=== PATIENT | female | born 1970 | race Caucasian/White ===

== ENCOUNTER → 2020-08-30 | Day surgery (SDC) | payer MEDICARE ==
[~2020-08-30] MED LIST: ALBUTEROL INH; BRINTELLIX20 MG PO; CLONAZEPAM2 MG PO; CYMBALTA60 MG PO; DILANTIN100 MG PO; DULERA 100 MCG8.8 GM INH; FLONASE 0.05% N16 GM; GABAPENTIN800 MG PO; HYDROCHLOROTHIA25 MG PO; KEPPRA1000 MG PO; KLONOPIN TAB 00.5 MG PO; LAMICTAL100 MG PO; LAMOTRIGINE100 MG PO; LAMOTRIGINE150 MG PO; LEVOXYL50 MCG PO; LIPITOR TAB 2020 MG PO; LOTENSIN40 MG PO; MS CONTIN15 MG PO; NORFLEX 100 MG100 MG PO; PHENYTOIN SODI100 MG PO; PREDNISONE 50 M50 MG PO; PROVENTIL HFA6.7 GM INH; SEROQUEL XR400 MG PO; SEROQUEL300 MG PO; SYNTHROID50 MCG PO; VISTARIL50 MG PO; Voltaren Gel 1 % TOP; ZANAFLEX4 MG PO
== END | disposition home or self-care (01) ==
LOC: OR 08:22
DX: K20.90 Esophagitis, unspecified without bleeding (principal); K31.9 Disease of stomach and duodenum, unspecified; J39.2 Other diseases of pharynx; G47.33 Obstructive sleep apnea (adult) (pediatric); G40.909 Epilepsy, unspecified, not intractable, without status epilepticus; J45.909 Unspecified asthma, uncomplicated; F60.3 Borderline personality disorder; M79.7 Fibromyalgia; E78.00 Pure hypercholesterolemia, unspecified; F17.200 Nicotine dependence, unspecified, uncomplicated; E66.01 Morbid (severe) obesity due to excess calories; Z68.42 Body mass index [BMI] 45.0-49.9, adult; Z88.0 Allergy status to penicillin; Z88.1 Allergy status to other antibiotic agents; Z88.6 Allergy status to analgesic agent; Z79.899 Other long term (current) drug therapy
CPT/HCPCS: 84703; J2001; J2704; J7040

== ENCOUNTER 2022-03-02 19:47 | Emergency (ER) | payer MEDICARE ==
[2022-03-02] MEDS ORDERED: VIBRAMYCIN100 MG PO (22:11)
[2022-03-02] MEDS ORDERED: BACTROBAN OINT22 GM TOP (22:11)
== END 2022-03-02 22:44 | disposition home or self-care (01) ==
LOC: ER1 19:47
DX: L03.115 Cellulitis of right lower limb (principal); Z88.1 Allergy status to other antibiotic agents; Z88.0 Allergy status to penicillin
CPT/HCPCS: 10060; 99283